=== PATIENT | female | born 1975 | race African-American/Black ===

== ENCOUNTER 2016-11-28 11:24 | Outpatient (CLI) | payer OTHER ==
[~2016-11-28] VITALS: Ht 162.6 cm; Wt 94.0 kg
[~2016-11-28 11:24] MED LIST: AMLO10TA4 PO; AMLO2.5T PO; FERR-74 PO; HYDR12.5 PO; METO100T6 PO; METR500T21 PO
[2016-11-28] MEDS ORDERED: OMEP40CA36 PO (11:34)
[2016-11-28] MEDS ORDERED: METO-274 PO (11:34)
[2016-11-28] MEDS ORDERED: AMLO10TA2 PO (11:34)
[2016-11-28 11:37] VITALS: BP 131/87
[2016-11-28 11:54] LABS: BASOPHILS % (AUTO) 0 % (0-10); EOSINOPHILS # (AUTO) 0.1 10^3/uL (0.0-0.3); EOSINOPHILS % (AUTO) 1 % (0-10); LYMPHOCYTES # (AUTO) 2.7 X 10^3 (1.0-4.0); LYMPHOCYTES % (AUTO) 35 % (12-44); MEAN CORPUSCULAR HEMOGLOBIN 22 PG (25-34); MEAN CORPUSCULAR HGB CONC 31 G/DL (32-36); MEAN CORPUSCULAR VOLUME 70 FL (80-99); MEAN PLATELET VOLUME 8.5 FL (7.4-10.4); MONOCYTES # (AUTO) 0.8 X 10^3 (0.0-1.0); MONOCYTES % (AUTO) 10 % (0-12); NEUTROPHILS # (AUTO) 4.2 X 10^3 (1.8-7.8); NEUTROPHILS % (AUTO) 54 % (42-75); PLATELET COUNT 526 10^3/uL (130-400); RED BLOOD COUNT 4.55 10^6/uL (4.35-5.85); WHITE BLOOD COUNT 7.7 10^3/uL (4.3-11.0)
[2016-11-29] MEDS ORDERED: DOCU-143 PO (10:51)
[2016-11-29] MEDS ORDERED: HYDR-3812 PO (10:51)
== END 2016-11-28 11:45 | disposition home or self-care (01) ==
LOC: PREOP 11:24
PROVIDERS: ATTEND Surgery
DX: Z01.812 Encounter for preprocedural laboratory examination (principal); Z11.2 Encounter for screening for other bacterial diseases; K80.20 Calculus of gallbladder without cholecystitis without obstruction
CPT/HCPCS: 36415; 84703; 85025; 87081

== ENCOUNTER 2016-11-29 08:45 | Day surgery (SDC) | payer OTHER ==
[~2016-11-29] VITALS: Ht 162.6 cm; Wt 94.0 kg
[~2016-11-29 08:45] MED LIST changes: +AMLO10TA2 PO; +METO-274 PO; +OMEP40CA36 PO
[2016-11-29] MEDS ORDERED: ceFAZolin 2 GM IV (SDC ONLY) 50 ML ONE (08:52)
[2016-11-29] MEDS: LACTATED RINGERS 1,000 ML IV PRN ×2 (09:00→09:59)
[2016-11-29] MEDS ORDERED: ceFAZolin 2GM/50 ML DEXTROSE (PREMIX) IV ONE (09:15)
[2016-11-29 09:17] VITALS: BP 136/78
[2016-11-29] MEDS ORDERED: MIDAZOLAM 2 MG/2 ML (VERSED) VIAL ONE (09:18)
[2016-11-29] MEDS ORDERED: fentaNYL INJECTION 250 MCG/5 ML AMP ONE (09:18)
--- NOTE | 2016-11-29 09:18 | Progress Note-Pre Operative ---
Pre-Operative Progress Note H&P Reviewed The H&P was reviewed, patient examined and no changes noted. Date H&P Reviewed: Nov 29, 2016 Time H&P Reviewed: 09:17 Pre-Operative Diagnosis: symptomatic cholelithiasis KELSEA BLISS DO Nov 29, 2016 9:18 am
[2016-11-29] MEDS ORDERED: proPOfol 200 MG/20 ML (DIPRIVAN) VIAL IV ONE (10:09)
[2016-11-29] MEDS ORDERED: ROCURONIUM 50 MG/5 ML (ZEMURON) VIAL IV ONE (10:09)
[2016-11-29] MEDS ORDERED: LIDOCAINE PF 2% 10 ML (XYLOCAINE) AMP ONE (10:09)
[2016-11-29] MEDS ORDERED: LACTATED RINGERS 2,000 ML IV ONE (10:09)
[2016-11-29] MEDS ORDERED: SEVOFLURANE (ULTANE) 15 ML INHAL SOLN ONE ×2 (10:09→11:40)
[2016-11-29] MEDS ORDERED: ONDANSETRON 4 MG/2 ML (SDV) Z0FRAN ONE (10:09)
[2016-11-29] MEDS ORDERED: DEXAMETHASONE PF 10 MG/ML (DECADRON) VIAL ONE (10:09)
[2016-11-29] MEDS ORDERED: LIDOCAINE 1% INJ 20 ML (XYLOCAINE) VIAL INJ ONE (10:15)
[2016-11-29] MEDS ORDERED: BUPIVACAINE 0.25% 30 ML (SENSORCAINE) VIAL INJ ONE (10:15)
[2016-11-29] MEDS ORDERED: NEOSTIGMINE (BLOXIVERZ ) 1 MG/1ML 10 ML VIAL ONE (10:31)
[2016-11-29] MEDS ORDERED: GLYCOPYRROLATE 0.2 MG/ML (ROBINUL) 2 ML VIAL ONE (10:31)
--- NOTE | 2016-11-29 10:49 | Progress Note-Post Operative ---
Post-Operative Progess Note [employer] Manager Dr. Fountain Pre-Operative Diagnosis symptomatic cholelithiasis Post-Operative Diagnosis symptomatic cholelithiasis, significant adhesions Post-Op Procedure Note Date of Procedure: Nov 29, 2016 Name of Procedure: laparoscopic cholecystectomy attempted ioc Procedure Note/Findings see note Anesthesia Type general Estimated blood loss (mL): minimal Specimen(s) collected gallbladder KELSEA BLISS DO Nov 29, 2016 10:49 am
[2016-11-29] MEDS ORDERED: HYDR-3812 PO (10:51)
[2016-11-29] MEDS ORDERED: DOCU-143 PO (10:51)
--- NOTE | 2016-11-29 10:54 | Discharge Inst-Simple/Standard ---
Discharge Inst-Standard Discharge Medications New, Converted or Re-Newed RX: RX on Chart Patient Instructions/Follow Up Plan of Care/Instructions/FU: 2 weeks Jie Activity as Tolerated: No Discharge Diet: Regular Diet Other Inst to Patient Follow up Appt: Make appointment for 2 weeks. Instructions: No lifting greater than 10 pounds. No strenuous activity. May shower in 24 hours, no tub bath or soaking. Use incentive spirometer at home as directed. No Smoking Skin/Wound Care: May remove bandages 24 hours. You need to leave the white strips over incision on they will fall off on their own. Symptoms to Report: Appetite Changes, Extremity Discoloration, Numbness/Tingling, Swelling Increased , Bleeding Excessive, Eyesight Changes, Pain Increased, Urine Color Change, Constipation(Persistent), Fever over 101 degree F, Pain/Pressure in chest, Urinating Difficulty, Cough Up/Vomit Blood, Heart Beat Irreg/Pounding, Pain/ Pressure in jaw, Vaginal Bleeding Increase, Cramps in feet or legs, Lightheadedness, Pain/Pressure in shoulder, Diarrhea(Persistent), Memory Changes Suddenly, Questions/Concerns, Weight gain consecutive days, Dizziness/ Fainting, Nausea/Vomiting, Shortness of Breath, Weight gain over 2 pounds. If eyes or skin turn yellow notify physician. If questions or concerns contact your physician Or seek help at emergency department. KELSEA BLISS DO Nov 29, 2016 10:54 am
[2016-11-29] MEDS ORDERED: HYDROcodone/APAP 5 MG/325 MG (LORTAB) TAB PO PRN (11:00)
[2016-11-29] MEDS ORDERED: morphine INJ 10 MG/ML 1ML (SYR OR VIAL) ONE (11:22)
[2016-11-29] MEDS ORDERED: HYDROmorphone (DILAUDID) 2 MG/ML VIAL IVP PRN (11:30)
[2016-11-29] MEDS ORDERED: morphine INJ 10 MG/ML 1ML (SYR OR VIAL) IVP PRN (11:30)
[2016-11-29] MEDS ORDERED: ONDANSETRON 4 MG/2 ML (SDV) Z0FRAN IVP PRN (11:30)
[2016-11-29] MEDS ORDERED: MEPERIDINE (DEMEROL) INJ 50 MG/ML IVP PRN (11:30)
[2016-11-29 12:20] VITALS: BP 153/109
[2016-11-29 12:50] VITALS: BP 152/103
[2016-11-29 13:20] VITALS: BP 142/88
[2016-11-29 14:00] VITALS: BP 142/88
--- NOTE | 2016-12-02 17:54 | OPERATIVE REPORT ---
PROCEDURE PHYSICIAN: KELSEA BLISS DATE OF PROCEDURE: 11/29/2016 PREOPERATIVE DIAGNOSIS: Symptomatic cholelithiasis. POSTOPERATIVE DIAGNOSIS: Symptomatic cholelithiasis. PROCEDURE: Laparoscopic cholecystectomy with attempted intraoperative cholangiogram. SURGEON: Dr. Bliss. HEALTH RECORDS TECHNOLOGY TEACHER: Dr. Fountain, assist in retraction, dissection, and closure. ANESTHESIA: General. ESTIMATED BLOOD LOSS: Minimal. COMPLICATIONS: None. INDICATIONS: The patient is a 41-year-old female who presented with abdominal pain. She was found to have gallstones stuck in the neck of the gallbladder. The patient was explained the risks and benefits of procedure and wished to proceed with procedure. Consent was signed on the chart. PROCEDURE: The patient was taken to the operating suite. She was prepped and draped in sterile fashion. A surgical pause was performed. Just superior to the umbilicus, a 12 mm incision was made. Dissection was taken down to the fascia, which was then scored and grasped with a Mikala and the abdomen was then entered. A 0 Vicryl suture was placed in a [id number] fashion and a Perez trocar was placed and secured. Pneumoperitoneum was achieved. The patient had multiple adhesions throughout the right upper quadrant above the liver and just inferior to the liver. The gallbladder had adhesions severely adhering the gallbladder to the falciform ligament as well. There is an open window in the right upper quadrant so two 5-mm trocars were placed in the right upper quadrant. These adhesions were taken down sharply with Endo scissors allowing the liver to fall back to its normal position. The gallbladder was also partially taken down the falciform ligament causing the gallbladder to go back to its normal position. This also made it to where the 5 mm trocar could be placed in the subxiphoid region under direct visualization of the laparoscope. The gallbladder was then grasped and elevated. It had multiple adhesions to the liver as well which these were all bluntly taken down. The gallbladder, cystic duct, and cystic artery were then dissected out. Clip was placed on the distal portion of the cystic duct which was then partially transected. The cystic duct was narrow and the incision appears to be just above a valve. An arrow catheter was attempted to be inserted into the duct, but was unsuccessful. The duct was attempted to be dilated and the duct was not able to have the catheter inserted; therefore, the cholangiogram was then aborted. Clips were placed on proximal portion of the cystic duct and then the duct was then transected. Clips were placed along the proximal and distal portion of the cystic artery which was then transected. Hook cautery was used to dissect the gallbladder from the gallbladder fossa achieving hemostasis. The gallbladder was placed in an Endobag and removed through the 12 mm trocar site. The abdomen was then reinspected. Copious amounts of irrigation were used to irrigate the abdomen and there were no signs of active bleeding. Hemostasis had been achieved. The 12 mm fascial defect was then closed with 0 Vicryl suture that had been placed in a [id number] fashion. The abdomen was then desufflated, the trocars were removed. The abdomen was then washed and dried. The skin was then closed using 4-0 Vicryl in a subcuticular fashion. A total of 20 mL of 0.5% Marcaine and 1% lidocaine 50:50 ratio was used to anesthetize the trocar sites. Mastisol and Steri-Strips were applied and sterile bandages were applied. The patient tolerated the procedure well without any complications. She was taken to the recovery room in stable condition. Job ID: [id number] Dictated Date: 11/29/2016 14:01:59 Supervisor [place]ble Date: 12/02/2016 17:45:09 / magan JONES
== END 2016-11-29 14:00 | disposition home or self-care (01) ==
LOC: SDC 08:45
PROVIDERS: ATTEND Surgery
DX: K80.10 Calculus of gallbladder with chronic cholecystitis without obstruction (principal)
CPT/HCPCS: 94664

== ENCOUNTER 2017-07-03 10:11 | Emergency (ER) | payer BC, OTHER ==
[~2017-07-03] VITALS: Ht 162.6 cm; Wt 95.7 kg
[~2017-07-03 10:11] MED LIST changes: +DOCU-143 PO; +HYDR-3812 PO; -METO-274 PO; +METO-395 PO
--- OUTSIDE RECORDS SUMMARY | 2017-07-03 10:17 | XMS REPORT ---
Author ALEAH Enriquez Organization [employer] Address Unknown Phone Unavailable Care Team Providers Care Directional Driller Name Role Phone ALEAH JOLLEY CP Unavailable Allergies, Adverse Reactions, Alerts Substance Reaction Event Type N.K.D.A. Info Not Available Non Drug Allergy Problems Problem Type Condition Code Onset Dates Condition Status Problem Morbid obesity due to excess calories E66.01 Active Assessment Abscessed tooth K04.7 Active Problem Essential hypertension I10 Active Assessment Essential hypertension I10 Active Medications Medication Code System Code Instructions Start Date End Date Status Dosage Amlodipine Besylate [facility] [address]-06 10 MG Orally Once a day 1 tablet Metoprolol Succinate ER [facility] [address]-66 100 MG Orally Once a day 1 tablet Amoxicillin [facility] [address]-41 500 MG Orally 3 times a day Oct 19, 2016 Oct 29, 2016 1 tablet Tramadol HCl [facility] [address]-92 50 mg Orally every 6 hrs Oct 19, 2016 1 tablet as needed Excedrin Extra Strength [facility] [address]-21 250-250-65 MG Orally every 6 hrs 2 tablets as needed Procedures Procedure Coding System Code Date Office Visit, Est Pt., Level 3 CPT-4 29869 Oct 19, 2016 Vital Signs Date/Time: Oct 19, 2016 Cardiac Monitoring Heart Rate 78 bpm Weight 207.6 lbs Height 5 ft 4 in in BMI 35.63 Index Blood Pressure Diastolic 76 mmHg Blood Pressure Systolic 126 mmHg Results No Known Results Summary Purpose [employer] Submission
--- OUTSIDE RECORDS SUMMARY | 2017-07-03 10:17 | XMS REPORT ---
Author ALEAH Enriquez [facility] [employer] Address Unknown Phone Unavailable Care Team Providers Care Speech Coach Name Role Phone ALEAH JOLLEY CP Unavailable Allergies, Adverse Reactions, Alerts Substance Reaction Event Type N.K.D.A. Info Not Available Non Drug Allergy Problems Problem Type Condition Code Onset Dates Condition Status Problem Morbid obesity due to excess calories E66.01 Active Assessment Essential hypertension I10 Active Problem Essential hypertension I10 Active Assessment Family history of diabetes mellitus (DM) Z83.3 Active Assessment Morbid obesity due to excess calories E66.01 Active Medications Medication Code System Code Instructions Start Date End Date Status Dosage Metoprolol Succinate ER [facility] [address]-73 100 MG Orally Once a day 1 tablet Amlodipine Besylate [facility] [address]-95 10 MG Orally Once a day 1 tablet Procedures Procedure Coding System Code Date Office Visit, New Pt., Level 4 CPT-4 67146 Aug 27, 2016 GLYCATED HEMOGLOBIN TEST CPT-4 89681 Aug 27, 2016 Vital Signs Date/Time: Aug 27, 2016 Cardiac Monitoring Heart Rate 80 bpm Weight 213 lbs Height 5 ft 4 in in BMI 36.56 Index Blood Pressure Diastolic 90 mmHg Blood Pressure Systolic 150 mmHg Results Name Result Date Reference Range Unit Abnormality Flag A1C (IN HOUSE) ----A1C IN HOUSE 5.6 [id number] 4.3 - 5.6 % ----Previous A1c None Available [id number] ----Lot [id number] ----Exp date [id number] Summary Purpose [employer] Submission
--- OUTSIDE RECORDS SUMMARY | 2017-07-03 10:18 | XMS REPORT ---
Author Author SACHA NICHOLS [facility] Address [address] [place] [address] Care Team Providers Care Auto Self Service Station Attendant Name Role Phone SACHA NICHOLS Unavailable PROBLEMS Type Condition ICD9-CM Code MDY56-TO Code Onset Dates Condition Status SNOMED Code Assessment Hematuria, unspecified R31.9 Oct, Active 97910648 Problem Essential hypertension I10 Active 81569272 Problem Morbid obesity due to excess calories E66.01 Active 824881039 Assessment Dyspepsia R10.13 Oct, Active 903462495 Assessment Urinary tract infection, site not specified N39.0 Oct, Active 30727143 Assessment Dysuria R30.0 Oct, Active 76078758 Assessment RUQ pain R10.11 Oct, Active 329164614 ALLERGIES Substance Reaction Event Type Date Status N.K.D.A. Unknown Non Drug Allergy Oct, Unknown SOCIAL HISTORY No smoking Hx information available PLAN OF CARE Activity Details Pending Test CULTURE, URINE Pending Test Ultrasound : Abdominal, COMPLETE 2 Weeks follow up,Reason: VITAL SIGNS Height 5 ft 4 in in 2016-11-06 Weight 211.8 lbs 2016-11-06 Heart Rate 70 bpm 2016-11-06 Respiratory Rate 20 2016-11-06 BMI 36.35 kg/m2 2016-11-06 Blood pressure systolic 144 mmHg 2016-11-06 Blood pressure diastolic 86 mmHg 2016-11-06 MEDICATIONS Medication Instructions Dosage Frequency Start Date End Date Duration Status Omeprazole 40 mg Orally Once a day 1 capsule 24h Oct, Active Metoprolol Succinate ER 100 MG Orally Once a day 1 tablet 24h Active Macrobid 100 MG Orally every 12 hrs 1 capsule with food 12h 7 day(s) Active Amlodipine Besylate 10 MG Orally Once a day 1 tablet 24h Active Excedrin Extra Strength 250-250-65 MG Orally every 6 hrs 2 tablets as needed 6h Active RESULTS Name Result Date Reference Range UA LONG DIP (IN HOUSE) 2016-11-06 Lot # [id number] Exp date 10/11 Clarity clear Color yellow Odor none GLU negative VU negative KET negative SG 1.025 BLO 2+ pH 5.5 Protein trace URO 0.2 NIT negative ZHANNA 1+ Lot # Exp date CULTURE, URINE 2016-11-06 Urine Culture, Routine Final report Result 1 No growth Ultrasound : Abdominal, COMPLETE 2016-11-12 PROCEDURES Procedure Date Ordered Related Diagnosis Body Site URINALYSIS, AUTO, W/O SCOPE Nov 06, 2016 Office Visit, Est Pt., Level 4 Nov 06, 2016 URINE CULTURE/COLONY COUNT Nov 06, 2016 IMMUNIZATIONS No Known Immunizations
[2017-07-03] MEDS ORDERED: ASPIRIN 81 MG CHEW (CHILDREN'S ASA) PO STA (10:27)
[2017-07-03 10:53] LABS: BASOPHILS % (AUTO) 0 % (0-10); EOSINOPHILS # (AUTO) 0.1 10^3/uL (0.0-0.3); EOSINOPHILS % (AUTO) 1 % (0-10); LYMPHOCYTES # (AUTO) 2.4 X 10^3 (1.0-4.0); LYMPHOCYTES % (AUTO) 35 % (12-44); MEAN CORPUSCULAR HEMOGLOBIN 22 PG (25-34); MEAN CORPUSCULAR HGB CONC 31 G/DL (32-36); MEAN CORPUSCULAR VOLUME 71 FL (80-99); MEAN PLATELET VOLUME 8.5 FL (7.4-10.4); MONOCYTES # (AUTO) 0.5 X 10^3 (0.0-1.0); MONOCYTES % (AUTO) 8 % (0-12); NEUTROPHILS # (AUTO) 3.7 X 10^3 (1.8-7.8); NEUTROPHILS % (AUTO) 55 % (42-75); PLATELET COUNT 502 10^3/uL (130-400); RED CELL DISTRIBUTION WIDTH 18.3 % (10.0-14.5); WHITE BLOOD COUNT 6.7 10^3/uL (4.3-11.0)
--- NOTE | 2017-07-03 10:53 | ED Cardiac General ---
History of Present Illness General Chief Complaint: Chest Pain Stated Complaint: CP Nursing Triage Note: c/o chest pain. Onset 25 min ago. Source: patient Exam Limitations: no limitations History of Present Illness Time seen by provider: 10:20 Initial Comments Here with report of chest pain that started about proximally one half hour prior to evaluation. States that it was central low sternal area and nonradiating. Complained of tightness as the type pain. It was moderate in intensity and associated with a little bit of shortness of air although all of this is essentially resolved now. States it felt like when she had a bad gallbladder but this was removed in November. Denies breathing problems, vomiting, sweating or other problems otherwise. No significant family history. Patient does have hypertension does not smoke. States that she has felt a vague discomfort over the last 2-3 days and her chest and neck but did not attribute that to anything in that has all essentially resolved as well. Timing/Duration: 1/2 hour, changing over time Severity: moderate Location: central Activities at Onset: none Prior CP/Workup: no prior chest pain Modifying Factors: improves with rest NTG SL EXTRACTION OPERATOR: No ASA po EXTRACTION OPERATOR: No Associated Systoms: Chest Pain, No Fever/Chills, No Headaches, No Nausea/ Vomiting, Shortness of Air, No Weakness Allergies and Home Medications Allergies Coded Allergies: No Known Drug Allergies (Unverified , 10/08/15) Home Medications Amlodipine Besylate 10 Mg Tablet, 10 MG PO DAILY, (Reported) Docusate Sodium 100 Mg Capsule, 100 MG PO BID, #60 Prescribed by: KELSEA BLISS on 11/29/16 1051 Metoprolol Succinate 100 Mg Tab.er.24h, 100 MG PO DAILY, (Reported) Omeprazole 40 Mg Capsule.dr, 40 MG PO DAILY, (Reported) Review of Systems Constitutional: see HPI, No chills, No fever EENTM: No Symptoms Reported Respiratory: See HPI Cardiovascular: See HPI, Chest Pain, Denies Edema, Denies Lightheadedness Gastrointestinal: Denies Abdominal Pain, Denies Nausea, Denies Vomiting Genitourinary: No Symptoms Reported Musculoskeletal: no symptoms reported Skin: no symptoms reported All Other Systems Reviewed Negative Unless Noted: Yes Past Hjwblzs-Wxetxm-Xlypez Hx Patient Social History Alcohol Use: Occasionally Uses Recreational Drug Use: Yes Drug of Choice: MARIJUANA Type Used: Cigarettes Recent Foreign Travel: No Contact w/Someone Who Travel: No Recent Infectious Disease Expo: No Recent Hopitalizations: No Immunizations Up To Date Tetanus Booster (TDap): Unknown PED Vaccines UTD: No Seasonal Allergies Seasonal Allergies: No Surgeries HX Surgeries: Yes (D&C, tubal ligation x2) Surgeries: Tubal Ligation Respiratory Hx Respiratory Disorders: No Cardiovascular Hx Cardiac Disorders: Yes Cardiac Disorders: High Cholesterol, Hypertension Neurological Hx Neurological Disorders: No Reproductive System Hx Reproductive Disorders: No Sexually Transmitted Disease: No HIV/AIDS: No Female Reproductive Disorders: Denies Genitourinary Hx Genitourinary Disorders: No Gastrointestinal Hx Gastrointestinal Disorders: Yes Gastrointestinal Disorders: Gall Bladder Disease Musculoskeletal Hx Musculoskeletal Disorders: No Endocrine Hx Endocrine Disorders: No HEENT HX ENT Disorders: No Loss of Vision: Denies Hearing Impairment: Denies Cancer Hx Cancer: No Psychosocial Hx Psychiatric Problems: No Integumentary HX Skin/Integumentary Disorder: Yes Skin/Integumentary Disorders: Eczema Blood Transfusions Hx Blood Disorders: Yes (anemia) Adverse Reaction to a Blood Tr: No Reviewed Nursing Assessment Reviewed/Agree w Nursing PMH: Yes Family Medical History Significant Family History: No Pertinent Family Hx Family Medial History: Patient reports no known family medical history. Physical Exam Vital Signs Vital Sign - Last 12Hours 07/03/17 10:17 Temp 97.2 Pulse 85 Resp 16 Pulse Ox 97 O2 Delivery Room Air Capillary Refill : Less Than 3 Seconds General Appearance: No Apparent Distress, WD/WN HEENT: PERRL/EOMI, Pharynx Normal Neck: Non Tender, Supple Respiratory: Lungs Clear, Normal Breath Sounds Cardiovascular: Regular Rate, Rhythm, No Murmur Gastrointestinal: Non Tender, Soft Extremity: Normal Capillary Refill, Normal Inspection, Normal Range of Motion, Non Tender, No Calf Tenderness Neurologic/Psychiatric: Alert, Oriented x3 Skin: Normal Color, Warm/Dry Progress/Results/Core Measures Results/Orders Lab Results Laboratory Tests Test 07/03/17 10:40 07/03/17 13:05 Range/Units White Blood Count 6.7 4.3-11.0 10^3/uL Red Blood Count 4.50 4.35-5.85 10^6/uL Hemoglobin 9.8 L 11.5-16.0 G/DL Hematocrit 32 L 35-52 % Mean Corpuscular Volume 71 L 80-99 FL Mean Corpuscular Hemoglobin 22 L 25-34 PG Mean Corpuscular Hemoglobin Concent 31 L 32-36 G/DL Red Cell Distribution Width 18.3 H 10.0-14.5 % Platelet Count 502 H 130-400 10^3/uL Mean Platelet Volume 8.5 7.4-10.4 FL Neutrophils (%) (Auto) 55 42-75 % Lymphocytes (%) (Auto) 35 12-44 % Monocytes (%) (Auto) 8 0-12 % Eosinophils (%) (Auto) 1 0-10 % Basophils (%) (Auto) 0 0-10 % Neutrophils # (Auto) 3.7 1.8-7.8 X 10^3 Lymphocytes # (Auto) 2.4 1.0-4.0 X 10^3 Monocytes # (Auto) 0.5 0.0-1.0 X 10^3 Eosinophils # (Auto) 0.1 0.0-0.3 10^3/uL Basophils # (Auto) 0.0 0.0-0.1 10^3/uL Prothrombin Time 11.8 L 12.2-14.7 SEC INR Comment 0.9 0.8-1.4 Activated Partial Thromboplast Time 27 24-35 SEC D-Dimer 0.51 H 0.00-0.49 UG/ML Sodium Level 137 135-145 MMOL/L Potassium Level 3.5 L 3.6-5.0 MMOL/L Chloride Level 103 98-107 MMOL/L Carbon Dioxide Level 25 21-32 MMOL/L Anion Gap 9 5-14 MMOL/L Blood Urea Nitrogen 11 7-18 MG/DL Creatinine 0.75 0.60-1.30 MG/DL Estimat Glomerular Filtration Rate > 60 BUN/Creatinine Ratio 15 Glucose Level 96 70-105 MG/DL Calcium Level 8.9 8.5-10.1 MG/DL Magnesium Level 1.9 1.8-2.4 MG/DL Total Bilirubin 0.3 0.1-1.0 MG/DL Aspartate Amino Transf (AST/SGOT) 84 H 5-34 U/L Alanine Aminotransferase (ALT/SGPT) 44 0-55 U/L Alkaline Phosphatase 105 40-136 U/L Myoglobin 48.0 10.0-92.0 NG/ML Troponin I < 0.30 < 0.30 <0.30 NG/ML Total Protein 7.5 6.4-8.2 GM/DL Albumin 3.8 3.2-4.5 GM/DL Lipase 192 H 8-78 U/L My Orders Orders - DAVIAN CONTRERAS MD Ekg Tracing (07/03/17 10:14) Aspirin Chewable Tablet (Baby Aspirin Ch (07/03/17 10:27) Fibrin Degradation Products (07/03/17 10:27) Lipase (07/03/17 10:27) Cbc With Automated Diff (07/03/17 10:) Magnesium (07/03/17 10:27) Chest 1 View, Ap/Pa Only (07/03/17 10:27) Cardiac Profile 1 (07/03/17 10:) Comprehensive Metabolic Panel (07/03/17 10:) Myoglobin Serum (07/03/17 10:27) Protime With Inr (07/03/17 10:) Partial Thromboplastin Time (07/03/17 10:) O2 (07/03/17 10:27) Monitor-Rhythm Ecg Trace Only (07/03/17 10:) Lipid Panel (07/04/17 06:00) Saline Lock/Iv-Start (07/03/17 10:27) Troponin I (07/03/17 12:50) Ns Iv 1000 Ml (Sodium Chloride 0.9%) (07/03/17 12:50) Ct Abdomen/Pelvis W (07/03/17 12:50) Iohexol Injection (Omnipaque 350 Mg/Ml 1 (07/03/17 13:15) Ua Culture If Indicated (07/03/17 14:15) Medications Given in ED Current Medications Medications Dose Ordered Sig/Leopoldo Route Start Time Stop Time Status Last Admin Dose Admin Sodium Chloride 1,000 ml @ 0 mls/hr Q0M ONCE IV 07/03/17 12:50 07/03/17 12:52 DC 07/03/17 13:03 0 MLS/HR Vital Signs/I&O Vital Sign - Last 12Hours 07/03/17 07/03/17 10: 10:37 Temp 97.2 97.2 Pulse 85 Resp 16 B/P (MAP) Pulse Ox 97 O2 Delivery Room Air Progress Note : Progress Note Seen and evaluated. IV, labs, EKG and chest x-ray ordered. ASA 324 mg by mouth given. Monitor patient. Patient is essentially pain-free now. Monitor patient. Lipase elevated. CT abdomen and pelvis ordered. Normal saline 1 L bolus ordered. Patient remains pain free. Repeat troponin done. 1410: CT results noted. No acute findings within the abdomen or pelvis. Repeat troponin are negative. Patient remains pain free. I did discuss the case with Dr. Dequan Driscoll. She will see the patient in clinic tomorrow at 1130. Patient is fine with that and appreciative of the appointment. We will send a copy of the chart to Dr. Driscoll. Discharged home with return precautions. Patient verbalize understanding instructions and agreement with plan. UA pending at time of discharge as patient reports increased urination. ECG Initial ECG Impression Date: Jul 03, 2017 Initial ECG Impression Time: 10:17 Initial ECG Rate: 85 Initial ECG Rhythm: Normal Sinus Comment Sinus rhythm with normal axis. No evidence of ST elevation VA. Overall similar to appearance from 11 July 2016. Interpreted by me. Diagnostic Imaging Diagonstic Imaging: Xray Plain Films/CT/US/NM/MRI: chest Comments NAME: [facility] REC#: [id number] PT STATUS: REG ER : 1975 PHYSICIAN: DAVIAN CONTRERAS MD ADMIT DATE: 07/03/17/ER Signed Date of Exam: 07/03/17 CHEST 1 VIEW, AP/PA ONLY INDICATION: Chest pain. COMPARISON: 07/10/2016 FINDINGS: Single frontal view of the chest demonstrates normal heart size and pulmonary vascularity. The lungs are well aerated and clear. No large pleural effusion or pneumothorax is seen. The visualized osseous structures show no acute abnormalities. IMPRESSION: 1. No acute cardiopulmonary process. Dictated by: Dictated on workstation # [id number] Dict: 07/03/17 1156 Trans: 07/03/17 1347 Interpreted by: AMRIT CARMONA Electronically signed by: AMRIT CARMONA 07/03/17 1347 Diagonstic Imaging: CT Plain Films/CT/US/NM/MRI: abdomen, pelvis Comments VIA [facility]. [place], [place] NAME: AVEL KEN [facility] REC#: [id number] PT STATUS: REG ER : 1975 PHYSICIAN: DAVIAN CONTRERAS MD ADMIT DATE: 07/03/17/ER Draft Date of Exam:07/03/17 CT ABDOMEN/PELVIS W PROCEDURE: CT abdomen and pelvis with contrast. TECHNIQUE: Multiple contiguous axial images were obtained through the abdomen and pelvis after administration of intravenous contrast. INDICATION: Upper abdominal pain. Possible pancreatitis. COMPARISON: 10/08/2015 FINDINGS: Included views of the lung bases are clear. CT abdomen: Normal appendix is identified. Small bowel loops are nondistended. There is a small area of nodularity involving the medial genu of the left adrenal gland. Area in question measures approximately 1 cm in diameter. It is incompletely characterized on this exam, but does appear to be present and stable when compared to prior CT abdomen dated 10/08/2015 (image 16, series 2). Right adrenal gland has a normal appearance. The spleen, pancreas, kidneys, and liver have a normal CT appearance. There is no loculated fluid collection, free fluid, nor free air within the abdomen. No abnormal mesenteric or retroperitoneal adenopathy is seen. Bony structures show no acute abnormalities. CT pelvis: Urinary bladder is grossly unremarkable. There is probable collapsing ovarian follicle or cyst on the right that measures 1.5 cm in diameter. There is no loculated fluid collection, free fluid, nor free air within the pelvis. No abnormal lymph nodes are seen. Bony structures show no acute abnormalities. IMPRESSION: 1. No acute abnormalities within the abdomen or pelvis. Dictated on workstation # [id number] Dict: 07/03/17 1340 Trans: 07/03/17 1350 [facility] [id number] Interpreted by: AMRIT CARMONA Electronically signed by: Departure Impression Impression: Primary Impression: Chest pain Qualified Codes: R07.9 - Chest pain, unspecified Additional Impression: Elevated pancreatic enzyme Disposition: 01 HOME, SELF-CARE Condition: Stable Departure-Patient Inst. Decision time for Depature: 14:18 Referrals: VERÓNICA CHRISTIANSEN DO (PCP) Primary Care Physician ALEAH JOLLEY (Family) Primary Care Physician Patient Instructions: Chest Pain (DC), Pancreatitis (DC) Add. Discharge Instructions: All discharge instructions reviewed with patient and/or family. Voiced understanding. Clear liquid diet for 24 hours and then advance as instructed by Dr. Driscoll. You should see Dr. Driscoll at the clinic tomorrow at 1130 as discussed. You can discuss with her further follow-up including possibility of cardiac stress test as indicated. Return for worse pain, fever, vomiting, weakness, breathing problems or other concerns as needed. You may take Tylenol 1000 mg every 8 hours as needed for pain. He may take ibuprofen 800 mg every 8 hours as needed for pain. Drink plenty of fluids. Work/School Note: Work Release Form Date Seen in the Emergency Department: Jul 03, 2017 Return to Work: Jul 05, 2017 Restrictions: No Restrictions Copy Copies To 1: DEQUAN DRISCOLL MD, TIMOTHY D MD Jul 03, 2017 10:53
[2017-07-03 11:04] LABS: INR 0.9 (0.8-1.4); PROTHROMBIN TIME PATIENT 11.8 SEC (12.2-14.7)
[2017-07-03 11:14] LABS: ALANINE AMINOTRANSFERASE 44 U/L (0-55); ALBUMIN 3.8 GM/DL (3.2-4.5); ANION GAP 9 MMOL/L (5-14); ASPARTATE AMINO TRANSFERASE 84 U/L (5-34); BILIRUBIN,TOTAL 0.3 MG/DL (0.1-1.0); BLOOD UREA NITROGEN 11 MG/DL (7-18); BUN/CREATININE RATIO 15; CALCIUM 8.9 MG/DL (8.5-10.1); CARBON DIOXIDE 25 MMOL/L (21-32); CHLORIDE 103 MMOL/L (98-107); CREATININE SERUM 0.75 MG/DL (0.60-1.30); GFR ESTIMATED > 60; GLUCOSE 96 MG/DL (70-105); MAGNESIUM 1.9 MG/DL (1.8-2.4); POTASSIUM 3.5 MMOL/L (3.6-5.0); SODIUM 137 MMOL/L (135-145); TOTAL PROTEIN 7.5 GM/DL (6.4-8.2)
--- NOTE | 2017-07-03 12:02 | Diagnostic Imaging Report ---
INDICATION: Chest pain. COMPARISON: 07/10/2016 FINDINGS: Single frontal view of the chest demonstrates normal heart size and pulmonary vascularity. The lungs are well aerated and clear. No large pleural effusion or pneumothorax is seen. The visualized osseous structures show no acute abnormalities. IMPRESSION: 1. No acute cardiopulmonary process. Dictated by: Dictated on workstation # [id number]
[2017-07-03] MEDS ORDERED: NS IV 1000 ML 1,000 ML IV ONE (12:50)
[2017-07-03] MEDS ORDERED: IOHEXOL 350 MG/ML 100 ML (OMNIPAQUE 350) VIAL IV ONE (13:15)
--- NOTE | 2017-07-03 13:50 | Diagnostic Imaging Report ---
PROCEDURE: CT abdomen and pelvis with contrast. TECHNIQUE: Multiple contiguous axial images were obtained through the abdomen and pelvis after administration of intravenous contrast. INDICATION: Upper abdominal pain. Possible pancreatitis. COMPARISON: 10/08/2015 FINDINGS: Included views of the lung bases are clear. CT abdomen: Normal appendix is identified. Small bowel loops are nondistended. There is a small area of nodularity involving the medial genu of the left adrenal gland. Area in question measures approximately 1 cm in diameter. It is incompletely characterized on this exam, but does appear to be present and stable when compared to prior CT abdomen dated 10/08/2015 (image 16, series 2). Right adrenal gland has a normal appearance. The spleen, pancreas, kidneys, and liver have a normal CT appearance. There is no loculated fluid collection, free fluid, nor free air within the abdomen. No abnormal mesenteric or retroperitoneal adenopathy is seen. Bony structures show no acute abnormalities. CT pelvis: Urinary bladder is grossly unremarkable. There is probable collapsing ovarian follicle or cyst on the right that measures 1.5 cm in diameter. There is no loculated fluid collection, free fluid, nor free air within the pelvis. No abnormal lymph nodes are seen. Bony structures show no acute abnormalities. IMPRESSION: 1. No acute abnormalities within the abdomen or pelvis. Dictated by: Dictated on workstation # [id number]
[2017-07-03 14:25] LABS: BILIRUBIN,URINE NEGATIVE (NEGATIVE); KETONES,URINE NEGATIVE (NEGATIVE); LEUKOCYTE ESTERASE ,URINE 1+ (NEGATIVE); NITRITE,URINE NEGATIVE (NEGATIVE); PH,URINE 7 (5-9); PROTEIN,URINE NEGATIVE (NEGATIVE); UROBILINOGEN,URINE NORMAL (NORMAL)
[2017-07-03 14:26] VITALS: BP 124/82
[2017-07-03 14:37] LABS: SQUAMOUS EPITHELIAL CELL,UR 25-50 /HPF; WBC,URINE RARE /HPF
== END 2017-07-03 14:26 | disposition home or self-care (01) ==
LOC: EDUNIT# 10:11 → ER 10:13
DX: R07.89 Other chest pain (principal); R74.8 Abnormal levels of other serum enzymes; E78.00 Pure hypercholesterolemia, unspecified; I10 Essential (primary) hypertension; F12.10 Cannabis abuse, uncomplicated; Z98.51 Tubal ligation status; Z87.19 Personal history of other diseases of the digestive system
CPT/HCPCS: 36415; 71010; 74177; 80053; 81000; 83690; 83735; 83874; 84484; 85025; 85379; 85610; 85730; 93005; 93041; 96360

== ENCOUNTER → 2019-12-17 | Outpatient (CLI) | payer BC ==
[~2019-12-17] MED LIST changes: +ACHD5005 PO; -AMLO10TA2 PO; +AMLO10TA7 PO; -AMLO2.5T PO; +AMLO2.5T4 PO; -FERR-74 PO; +FERR325T18 PO; +HOLD METFORMIN - RECEIVED CONTRAST 20 ML VIAL IV SCH; -HYDR-3812 PO; +IOHEXOL 350 MG/ML 100 ML (OMNIPAQUE 350) VIAL IV ONE; -METO-395 PO; +METR-145 PO; -METR500T21 PO; +MTP100TCR PO; +NS 100 ML (IVPB) BAG IV ONE; +OMEP40CA27 PO; -OMEP40CA36 PO
--- NOTE | 2019-12-17 09:31 | Diagnostic Imaging Report ---
PROCEDURE: CT right lower extremity with contrast. TECHNIQUE: Multiple contiguous axial CT images of the right extremity were obtained after intravenous administration of iodinated contrast. Auto Exposure Controls were utilized during the CT exam to meet ALARA standards for radiation dose reduction. INDICATION: Medial mid right thigh pain. Swelling. No fever or redness. No trauma. COMPARISON: None FINDINGS: No acute fracture is seen in the right femur. Alignment appears normal. There is an old nonunited fracture of the right inferior pubic ramus. There is mild tendinosis and calcification at the origin of the hamstring tendon, which may represent calcific tendinitis or be from remote trauma. The musculature of the right thigh demonstrates no focal atrophy. No rim-enhancing fluid collections are seen. No masses are seen. There are mildly prominent right inguinal lymph nodes, which appear stable since 2015. There is a small right knee joint effusion. Multiple phleboliths are seen in the pelvis. IMPRESSION: 1. Tendinopathy with calcification at the origin of the hamstring tendons, may represent calcific tendinitis or be from remote trauma. There is an old nonunited fracture of the right inferior pubic ramus 2. Small right knee joint effusion. Dictated by: Dictated on workstation # [id number]
== END ==
LOC: RAD 08:45
PROVIDERS: ATTEND Nurse Practitioner Community Health
DX: M65.852 Other synovitis and tenosynovitis, left thigh (principal); M67.88 Other specified disorders of synovium and tendon, other site; Z87.81 Personal history of (healed) traumatic fracture
CPT/HCPCS: 73701

== ENCOUNTER 2021-02-21 17:48 | Emergency (ER) | payer BC ==
[~2021-02-21] VITALS: Ht 162 cm; Wt 103.0 kg
[~2021-02-21 17:48] MED LIST changes: +AMLO-251 PO; -AMLO10TA7 PO; -HOLD METFORMIN - RECEIVED CONTRAST 20 ML VIAL IV SCH; -IOHEXOL 350 MG/ML 100 ML (OMNIPAQUE 350) VIAL IV ONE; -NS 100 ML (IVPB) BAG IV ONE
[2021-02-21] MEDS ORDERED: ONDANSETRON 4 MG/2 ML (SDV) Z0FRAN IVP ONE ×2 (18:00→19:00)
[2021-02-21] MEDS ORDERED: LACTATED RINGERS 1,000 ML IV ONE (18:00)
--- NOTE | 2021-02-21 18:13 | ED GI ---
General Chief Complaint: Abdominal/GI Problems Stated Complaint: VOMITING Source of Information: Patient History of Present Illness Date Seen by Provider: Feb 21, 2021 Time Seen by Provider: 17:58 Initial Comments PT ARRIVES VIA POV FROM HOME C/O NAUSEA/VOMITING/DIARRHEA SINCE Saturday02/18/21\\ HAS MOSTLY HAD DRY HEAVES, WITH SMALL AMOUNTS OF EMESIS. NO HEMATEMESIS OR COFFEE-GROUND EMESIS. HAS NOT BEEN ABLE TO EAT OR DRINK--STATES "IT COMES RIGHT BACK UP" HAS HAD DIARRHEA X 4-5 TODAY. NO BLACK/BLOODY/TARRY STOOLS NO ABDOMINAL PAIN NO FEVER C/O GENERALIZED WEAKNESS C/O DECREASED URINE OUTPUT, BUT NO PAIN OR DIFFICULTY URINATING SEEN AT [facility] ON SATURDAY AND GIVEN RX FOR ZOFRAN AND ZYRTEC--NO RELIEF HAD TEETH PULLED A COUPLE OF WEEKS AGO NO KNOWN EXPOSURE TO COVID-19 AND HAS NOT HAD COVID-19 VACCINATION NO COUGH NO SHORTNESS OF BREATH NO LOSS OF TASTE OR SMELL NO HEADACHES NO BODY ACHES PCP: [facility] Allergies and Home Medications Allergies Coded Allergies: No Known Drug Allergies (Unverified , 10/08/15) Home Medications Amlodipine Besylate 10 Mg Tablet, 10 MG PO DAILY, (Reported) Docusate Sodium 100 Mg Capsule, 100 MG PO BID Prescribed by: KELSEA BLISS on 11/29/16 1051 Metoprolol Succinate 100 Mg Tab.er.24h, 100 MG PO DAILY, (Reported) Nitrofurantoin Monohyd/M-Cryst 100 Mg Capsule, 1 TAB PO BID Prescribed by: ERUM OCAMPO on 02/21/211857 Omeprazole 40 Mg Capsule.dr, 40 MG PO DAILY, (Reported) Ondansetron 8 Mg Tab.rapdis, 8 MG PO Q6H Prescribed by: ERUM OCAMPO on 02/21/211856 Patient Home Medication List Home Medication List Reviewed: Yes Review of Systems Review of Systems Constitutional: see HPI; No chills, No diaphoresis, No dizziness, No fever; malaise, weakness EENTM: No Symptoms Reported Respiratory: No Symptoms Reported Cardiovascular: No Symptoms Reported Gastrointestinal: See HPI; Denies Abdominal Pain; Diarrhea, Nausea, Poor Appetite, Poor Fluid Intake, Vomiting Genitourinary: See HPI; Denies Burning, Denies Frequency, Denies Flank Pain, Denies Hematuria, Denies Incontinence, Denies Pain, Denies Urgency; Other (LMP--NOW) Musculoskeletal: no symptoms reported Skin: no symptoms reported Psychiatric/Neurological: No Symptoms Reported Endocrine: No Symptoms Reported Hematologic/Lymphatic: No Symptoms Reported Past Niqmwif-Hujpav-Jwpmbh Hx Past Med/Social Hx: Reviewed and Corrections made Patient Social History Alcohol Use: Denies Use Drug of Choice: MARIJUANA Smoking Status: Current Someday Smoker Type Used: Cigarettes Recent Hopitalizations: No Immunizations Up To Date Tetanus Booster (TDap): Unknown PED Vaccines UTD: No Seasonal Allergies Seasonal Allergies: No Past Medical History Surgeries: Yes (D&C, tubal ligation x2) Gallbladder, Tubal Ligation Respiratory: No Cardiac: Yes High Cholesterol, Hypertension Neurological: No : No Reproductive Disorders: No Female Reproductive Disorders: Denies Sexually Transmitted Disease: No HIV/AIDS: No Genitourinary: No Gastrointestinal: Yes (S/P CHOLECYSTECTOMY) Gall Bladder Disease Musculoskeletal: No Endocrine: No HEENT: No Loss of Vision: Denies Hearing Impairment: Denies Cancer: No Psychosocial: No Integumentary: Yes Eczema Blood Disorders: Yes (anemia) Adverse Reaction/Blood Tranf: No Family Medical History Patient reports no known family medical history. No Pertinent Family Hx Physical Exam Vital Signs Vital Signs - First Documented 02/21/21 02/21/21 17:53 19:12 Temp 36.5 Pulse 88 Resp 18 B/P (MAP) 146/91 (109) Pulse Ox 99 O2 Delivery Room Air Capillary Refill : Height/Weight/BMI Height: 5'4.00" Weight: 211lbs. 3.0oz. 95.553733or; 35.6 BMI Method:Stated General Appearance: WD/WN, no apparent distress, obese HEENT: PERRL/EOMI, normal ENT inspection, other (ORAL MUCOSA MOIST) Neck: normal inspection Respiratory: normal breath sounds, no respiratory distress, no accessory muscle use Cardiovascular: regular rate, rhythm, no murmur Gastrointestinal: normal bowel sounds, non tender, soft, no organomegaly Extremities: normal inspection, no pedal edema, normal capillary refill Back: normal inspection, no CVA tenderness Neurologic/Psychiatric: folder seamer II-XII nml as tested, no motor/sensory deficits, alert, normal mood/affect, oriented x 3 Skin: normal color (PT IS BLACK), warm/dry; No rash Progress/Results/Core Measures Results/Orders Lab Results Laboratory Tests Test 02/21/21 18:00 02/21/21 18:07 02/21/21 18:12 Range/Units White Blood Count 4.8 4.3-11.0 10^3/uL Red Blood Count 4.85 3.80-5.11 10^6/uL Hemoglobin 12.5 11.5-16.0 g/dL Hematocrit 40 35-52 % Mean Corpuscular Volume 82 80-99 fL Mean Corpuscular Hemoglobin 26 25-34 pg Mean Corpuscular Hemoglobin Concent 32 32-36 g/dL Red Cell Distribution Width 15.3 H 10.0-14.5 % Platelet Count 391 130-400 10^3/uL Mean Platelet Volume 8.8 L 9.0-12.2 fL Immature Granulocyte % (Auto) 0 % Neutrophils (%) (Auto) 45 42-75 % Lymphocytes (%) (Auto) 44 12-44 % Monocytes (%) (Auto) 9 0-12 % Eosinophils (%) (Auto) 0 0-10 % Basophils (%) (Auto) 0 0-10 % Neutrophils # (Auto) 2.2 1.8-7.8 10^3/uL Lymphocytes # (Auto) 2.1 1.0-4.0 10^3/uL Monocytes # (Auto) 0.5 0.0-1.0 10^3/uL Eosinophils # (Auto) 0.0 0.0-0.3 10^3/uL Basophils # (Auto) 0.0 0.0-0.1 10^3/uL Immature Granulocyte # (Auto) 0.0 0.0-0.1 10^3/uL Neutrophils % (Manual) 50 % Lymphocytes % (Manual) 40 % Monocytes % (Manual) 10 % Blood Morphology Comment NORMAL Sodium Level 140 135-145 MMOL/L Potassium Level 3.4 L 3.6-5.0 MMOL/L Chloride Level 105 98-107 MMOL/L Carbon Dioxide Level 23 21-32 MMOL/L Anion Gap 12 5-14 MMOL/L Blood Urea Nitrogen 5 L 7-18 MG/DL Creatinine 0.78 0.60-1.30 MG/DL Estimat Glomerular Filtration Rate > 60 BUN/Creatinine Ratio 6 Glucose Level 101 70-105 MG/DL Calcium Level 8.8 8.5-10.1 MG/DL Corrected Calcium 8.6 8.5-10.1 MG/DL Magnesium Level 2.0 1.6-2.4 MG/DL Total Bilirubin 0.3 0.1-1.0 MG/DL Aspartate Amino Transf (AST/SGOT) 58 H 5-34 U/L Alanine Aminotransferase (ALT/SGPT) 69 H 0-55 U/L Alkaline Phosphatase 64 40-136 U/L Total Protein 7.7 6.4-8.2 GM/DL Albumin 4.2 3.2-4.5 GM/DL Amylase Level 56 25-125 U/L Lipase 21 8-78 U/L Serum Test, Qualitative POSITIVE NEGATIVE Urine Color ORANGE Urine Clarity CLEAR Urine pH 6.5 5-9 Urine Specific [place] 1.020 1.016-1.022 Urine Protein 1+ H NEGATIVE Urine Glucose (UA) NEGATIVE NEGATIVE Urine Ketones 1+ H NEGATIVE Urine Nitrite NEGATIVE NEGATIVE Urine Bilirubin 1+ H NEGATIVE Urine Urobilinogen 0.2 < = 1.0 MG/DL Urine Leukocyte Esterase TRACE H NEGATIVE Urine RBC (Auto) 3+ H NEGATIVE Urine RBC 50-100 H /HPF Urine WBC >100 H /HPF Urine Squamous Epithelial Cells NONE /HPF Urine Crystals NONE /LPF Urine Bacteria NEGATIVE /HPF Urine Casts NONE /LPF Urine Mucus NEGATIVE /LPF Urine Culture Indicated NO Coronavirus 2018 (LUCY) Positive H Negative My Orders Orders - ERUM OCAMPO DO Ed Iv/Invasive Line Start (02/21/21 17:57) Monitor-Rhythm Ecg Trace Only (02/21/21 17:57) Amylase (02/21/21 17:57) Cbc With Automated Diff (02/21/21 17:57) Comprehensive Metabolic Panel (02/21/21 17:57) Hcg,Qualitative Serum (02/21/21 17:57) Lipase (02/21/21 17:57) Magnesium (02/21/21 17:57) Ua Culture If Indicated (02/21/21 17:57) Ed Iv/Invasive Line Start (02/21/21 17:57) Lactated Ringers (Lr 1000 Ml Iv Solution (02/21/21 18:00) Ondansetron Injection (Zofran Injectio (02/21/21 18:00) Coronavirus Sars-Cov-2 So 2018 (02/21/21 18:03) Covid 19 Inhouse Test (02/21/21 18:03) Manual Differential (02/21/21 18:00) Ondansetron Injection (Zofran Injectio (02/21/21 19:00) Medications Given in ED Current Medications Medications Dose Ordered Sig/Leopoldo Route Start Time Stop Time Status Last Admin Dose Admin Lactated Ringer's 1,000 ml @ 0 mls/hr Q0M ONCE IV 02/21/21 18:00 02/21/21 18:01 DC 02/21/21 18:20 1,000 MLS/HR Ondansetron HCl 4 mg ONCE ONCE IVP 02/21/21 18:00 02/21/21 18:01 DC 02/21/21 18:20 4 MG Ondansetron HCl 4 mg ONCE ONCE IVP 02/21/21 19:00 02/21/21 19:01 DC 02/21/21 19:10 4 MG Vital Signs/I&O 02/21/21 02/21/21 17:53 19:12 Temp 36.5 36.3 Pulse 88 73 Resp 18 16 B/P (MAP) 146/91 (109) 127/84 (109) Pulse Ox 99 98 O2 Delivery Room Air 02/22/21 00:00 Intake Total 1000 ml Balance 1000 ml Progress Progress Note : Progress Note PPE WORN AT ALL TIMES COVID-19 TESTING PERFORMED PT ADVISED OF NEED FOR QUARANTINE GIVEN IV FLUIDS AND ZOFRAN--NAUSEA IMPROVED NO VOMITING OR DIARRHEA DURING ER STAY VITALS STABLE Departure Impression Primary Impression: COVID-19 virus infection Additional Impressions: UTI (urinary tract infection) Nausea vomiting and diarrhea Disposition: 01 HOME, SELF-CARE Condition: Stable Departure-Patient Inst. Referrals: NO,LOCAL PHYSICIAN (PCP) Primary Care Physician [facility] Patient Instructions: Coronavirus Disease 2019 (COVID-19) (DC), Urinary Tract Infection, Adult ED, Viral Gastroenteritis, Preventing the Spread of an Infectious Disease Add. Discharge Instructions: CLEAR LIQUIDS--WATER, BROTH, JELLO, GATORADE BRATS DIET--BANANAS, RICE, APPLESAUCE, TOAST, SALTINES TYLENOL AND MOTRIN NEEDED FOR PAIN OR FEVER CONTINUE YOUR REGULAR MEDICATIONS PRESCRIBED QUARANTINE YOURSELF AND ALL HOUSEHOLD AND CLOSE CONTACTS FOR AT LEAST 2 WEEKS, OR UNTIL CLEARED BY DR. OR HEALTH DEPT FOLLOW UP WITH YOUR DR OR RETURN TO ER IF SYMPTOMS WORSEN All discharge instructions reviewed with patient and/or family. Voiced understanding. Scripts Nitrofurantoin Monohyd/M-Cryst (Macrobid 100 mg Capsule) 100 Mg Capsule 1 TAB PO BID, #20 CAP Prov: ERUM OCAMPO DO 02/21/21 Ondansetron (Ondansetron Odt) 8 Mg Tab.rapdis 8 MG PO Q6H, #10 TAB Prov: ERUM OCAMPO DO 02/21/21 Work/School Note: Work Release Form Date Seen in the Emergency Department: Feb 21, 2021 Return to Work: Mar 08, 2021 Restrictions: Need Release from Doctor ERUM OCAMPO DO Feb 21, 2021 18:13
[2021-02-21 18:16] LABS: BILIRUBIN,URINE 1+ (NEGATIVE); CLARITY,URINE CLEAR; COLOR,URINE ORANGE; GLUCOSE, URINE (UA) NEGATIVE (NEGATIVE); KETONES,URINE 1+ (NEGATIVE); LEUKOCYTE ESTERASE ,URINE TRACE (NEGATIVE); NITRITE,URINE NEGATIVE (NEGATIVE); PH,URINE 6.5 (5-9); PROTEIN,URINE 1+ (NEGATIVE)
[2021-02-21 18:18] LABS: BASOPHILS % (AUTO) 0 % (0-10); EOSINOPHILS % (AUTO) 0 % (0-10); HEMATOCRIT 40 % (35-52); HEMOGLOBIN 12.5 g/dL (11.5-16.0); LYMPHOCYTES # (AUTO) 2.1 10^3/uL (1.0-4.0); LYMPHOCYTES % (AUTO) 44 % (12-44); MEAN CORPUSCULAR HEMOGLOBIN 26 pg (25-34); MEAN CORPUSCULAR HGB CONC 32 g/dL (32-36); MEAN CORPUSCULAR VOLUME 82 fL (80-99); MEAN PLATELET VOLUME 8.8 fL (9.0-12.2); MONOCYTES # (AUTO) 0.5 10^3/uL (0.0-1.0); MONOCYTES % (AUTO) 9 % (0-12); NEUTROPHILS # (AUTO) 2.2 10^3/uL (1.8-7.8); NEUTROPHILS % (AUTO) 45 % (42-75); PLATELET COUNT 391 10^3/uL (130-400); WHITE BLOOD COUNT 4.8 10^3/uL (4.3-11.0)
[2021-02-21 18:34] LABS: ALBUMIN 4.2 GM/DL (3.2-4.5); CHLORIDE 105 MMOL/L (98-107); POTASSIUM 3.4 MMOL/L (3.6-5.0); SODIUM 140 MMOL/L (135-145)
[2021-02-21 18:35] LABS: AMYLASE 56 U/L (25-125); CALCIUM 8.8 MG/DL (8.5-10.1)
[2021-02-21 18:36] LABS: GLUCOSE 101 MG/DL (70-105)
[2021-02-21 18:36] LABS: BACTERIA,URINE NEGATIVE /HPF; RBC,URINE 50-100 /HPF; WBC,URINE >100 /HPF
[2021-02-21 18:37] LABS: TOTAL PROTEIN 7.7 GM/DL (6.4-8.2)
[2021-02-21 18:38] LABS: BILIRUBIN,TOTAL 0.3 MG/DL (0.1-1.0); CARBON DIOXIDE 23 MMOL/L (21-32)
[2021-02-21 18:40] LABS: ALKALINE PHOSPHATASE 64 U/L (40-136); CREATININE SERUM 0.78 MG/DL (0.60-1.30); GFR ESTIMATED > 60
[2021-02-21 18:41] LABS: BUN/CREATININE RATIO 6
[2021-02-21 18:43] LABS: ALANINE AMINOTRANSFERASE 69 U/L (0-55)
[2021-02-21 18:44] LABS: LIPASE 21 U/L (8-78)
[2021-02-21 18:47] LABS: LYMPHOCYTES % (MANUAL) 40 %; MONOCYTES % (MANUAL) 10 %; NEUTROPHILS % (MANUAL) 50 %; RBC MORPH NORMAL
[2021-02-21] MEDS ORDERED: ONDA8TAB13 PO (18:57)
[2021-02-21] MEDS ORDERED: NITR-65 PO (18:58)
[2021-02-21 19:12] VITALS: BP 127/84
== END 2021-02-21 19:13 | disposition home or self-care (01) ==
LOC: EDUNIT# 17:48 → ER 17:50
DX: U07.1 COVID-19 (principal); N39.0 Urinary tract infection, site not specified; I10 Essential (primary) hypertension; F17.210 Nicotine dependence, cigarettes, uncomplicated; Z79.899 Other long term (current) drug therapy
CPT/HCPCS: 80053; 81000; 82150; 83690; 83735; 84703; 85007; 85027; 99284; U0002; 36415; 87635

== ENCOUNTER 2022-11-09 08:59 | Outpatient (RCR) | payer BC ==
[2022-11-02 09:10] VITALS: BP 148/95
[2022-11-02] MEDS: IRON SUCROSE 200 MG/10 ML (VENOFER) VIAL IV SCH (09:38)
[~2022-11-09] VITALS: Ht 162.6 cm; Wt 95.9 kg
[~2022-11-09 08:59] MED LIST changes: +NITR-65 PO; -OMEP40CA27 PO; +OMEP40CA6 PO; +ONDA8TAB13 PO
[2022-11-09 09:00] VITALS: BP 129/82
[2022-11-09] MEDS: IRON SUCROSE 200 MG/10 ML (VENOFER) VIAL IV SCH (09:55)
== END 2022-11-24 | disposition home or self-care (01) ==
LOC: SDC 08:59
PROVIDERS: ATTEND Pediatrics
DX: D64.9 Anemia, unspecified (principal)
CPT/HCPCS: 96365

== ENCOUNTER 2023-07-20 07:14 | Emergency (ER) | payer BC ==
[~2023-07-20] VITALS: Ht 162 cm; Wt 101.0 kg
--- NOTE | 2023-07-20 07:20 | ED Back Pain ---
General Chief Complaint: Back Problems Stated Complaint: BACK PAIN Source of Information: Patient Exam Limitations: No Limitations History of Present Illness Date Seen by Provider: Jul 20, 2023 Time Seen by Provider: 07:18 Initial Comments 48-year-old female presents to the emergency department today for mid back pain. Symptoms present for 2 or 3 days and have been constant. She seems to have woken up with the pain at the onset but recalls no specific injuries. She has no loss of bowel or bladder control. Pain is worse with palpation, twisting and bending. No upper or lower extremity weakness numbness or tingling. All other systems reviewed and negative except documented per HPI. Voice recognition software was used to help create this chart Allergies and Home Medications Allergies Coded Allergies: No Known Drug Allergies (Unverified , 10/08/15) Patient Home Medication List Home Medication List Reviewed: Yes Amlodipine Besylate (Amlodipine Besylate) 10 Mg Tablet, 10 MG PO DAILY, (Reported) Entered as Reported by: MORENITA GUIDO on 11/28/16 1134 Docusate Sodium (Colace) 100 Mg Capsule, 100 MG PO BID Prescribed by: KELSEA BLISS on 11/29/16 1051 Metoprolol Succinate (Metoprolol Succinate) 100 Mg Tab.er.24h, 100 MG PO DAILY, (Reported) Entered as Reported by: MORENITA GUIDO on 11/28/16 1134 Nitrofurantoin Monohyd/M-Cryst (Macrobid 100 mg Capsule) 100 Mg Capsule, 1 TAB PO BID Prescribed by: ERUM OCAMPO on 02/21/21 1858 Omeprazole (Omeprazole) 40 Mg Capsule.dr, 40 MG PO DAILY, (Reported) Entered as Reported by: MORENITA GUIDO on 11/28/16 1134 Ondansetron (Ondansetron Odt) 8 Mg Tab.rapdis, 8 MG PO Q6H Prescribed by: ERUM OCAMPO on 02/21/21 1857 Review of Systems Constitutional: see HPI Past Pdcsdws-Kavvoz-Xwojik Hx Patient Social History Tobacco Use?: No Use of E-Cig and/or Vaping dev: No Substance use?: No Alcohol Use?: No Immunizations Up To Date Tetanus Booster (TDap): Unknown PED Vaccines UTD: No Seasonal Allergies Seasonal Allergies: No Past Medical History Surgeries: Yes (D&C, tubal ligation x2) Gallbladder, Tubal Ligation Respiratory: No Cardiac: Yes High Cholesterol, Hypertension Neurological: No Reproductive Disorders: No Female Reproductive Disorders: Denies Sexually Transmitted Disease: No HIV/AIDS: No Genitourinary: No Gastrointestinal: Yes (S/P CHOLECYSTECTOMY) Gall Bladder Disease Musculoskeletal: No Endocrine: No HEENT: No Loss of Vision: Denies Hearing Impairment: Denies Cancer: No Psychosocial: No Integumentary: Yes Eczema Blood Disorders: Yes (anemia) Adverse Reaction/Blood Tranf: No Family Medical History Patient reports no known family medical history. No Pertinent Family Hx Physical Exam Vital Signs Vital Signs - First Documented 07/20/23 07:20 Temp 35.6 Pulse 70 Resp 18 B/P (MAP) 166/88 (114) Pulse Ox 97 Capillary Refill : Height, Weight, BMI Height: 5'4.00" Weight: 211lbs. 3.0oz. [id number]; 39.00 BMI Method:Stated General Appearance: No Apparent Distress, WD/WN HEENT: Normal ENT Inspection Neck: Normal Inspection, Supple Cardiovascular: Regular Rate, Rhythm, No Murmur, Normal Peripheral Pulses Respiratory: Chest Non Tender, Lungs Clear, Normal Breath Sounds Gastrointestinal: Normal Bowel Sounds, Non Tender, Soft Back: Normal Inspection, No CVA Tenderness, Vertebral Tenderness (Tenderness palpation along lower thoracic spine. This seems to be paraspinal but there is no midline tenderness. No CVA tenderness. There does seem to be palpable muscle spasm just to the right which is the maximum area of tenderness when palpated.) Extremity: Normal Capillary Refill, Normal Inspection, Non Tender, No Calf Tenderness Neurologic/Psychiatric: Alert, Oriented x3 Skin: Normal Color, Warm/Dry Progress/Results/Core Measures Results/Orders Vital Signs/I&O 07/20/23 07:20 Temp 35.6 Pulse 70 Resp 18 B/P (MAP) 166/88 (114) Pulse Ox 97 Departure Communication (Admissions) Patient is hemodynamically stable with no red flag symptoms. She has what appears to be palpable muscle spasm just right in the paraspinal musculature in the lower thoracic spine. There are no cardiac type symptoms at this time. She has no CVA tenderness or urinary symptoms to indicate UTI or pyelonephritis. We will treat her conservatively for now with strict return precautions. She is prescribed Toradol and Flexeril. Counseled on both medications at length. All questions were sought and answered and the patient is discharged in stable condition. Impression Primary Impression: Strain of thoracic region Qualified Codes: S29.019A - Strain of muscle and tendon of unspecified wall of thorax, initial encounter Disposition: 01 HOME, SELF-CARE Condition: Stable Departure-Patient Inst. Referrals: JALYN LI DO (PCP/Family) Primary Care Physician Patient Instructions: Back Muscle Strain (DC) Add. Discharge Instructions: Take Toradol as prescribed as needed. Do not take any other anti-inflammatory medications while taking this. Use muscle relaxer as needed. This may make you drowsy so do not drive or make important decisions while taking it. Perform gentle stretching exercises. Return to the emergency department for any severe concerns. Follow-up with your primary doctor for any nonemergent needs All discharge instructions reviewed with patient and/or family. Voiced understanding. Scripts Cyclobenzaprine HCl (Cyclobenzaprine HCl) 10 Mg Tablet 10 MG PO TID PRN for MUSCLE SPASMS for 3 Days, #9 TAB Prov: ERICK MCKEON DO 07/20/23 Ketorolac Tromethamine (Ketorolac Tromethamine) 10 Mg Tablet 10 MG PO TID for Pain for 3 Days, #9 TAB Prov: ERICK MCKEON DO 07/20/23 ERICK MCKEON DO Jul 20, 2023 07:20
[2023-07-20] MEDS ORDERED: CYCL10TA25 PO (07:32)
[2023-07-20] MEDS ORDERED: KETO10TA PO (07:32)
[2023-07-20 07:37] VITALS: BP 166/88
== END 2023-07-20 07:38 | disposition home or self-care (01) ==
LOC: EDUNIT# 07:14 → ER 07:16
DX: S29.012A Strain of muscle and tendon of back wall of thorax, initial encounter (principal); Z28.310 Unvaccinated for COVID-19; X58.XXXA Exposure to other specified factors, initial encounter
CPT/HCPCS: 99281